=== PATIENT | male | born 1980 | race African-American/Black ===

== ENCOUNTER 2017-02-03 13:37 | Emergency (ER) | payer SELFPAY ==
[~2017-02-03] VITALS: Ht 182.9 cm; Wt 170.7 kg
[2017-02-03] MEDS ORDERED: PERCOCET 5/31 TABLET PO (17:13)
[2017-02-03 17:53] VITALS: BP 90/35
== END 2017-02-03 18:01 | disposition home or self-care (01) ==
LOC: EME 13:37
DX: R60.0 Localized edema (principal); Z87.828 Personal history of other (healed) physical injury and trauma
CPT/HCPCS: 99281; 99282

== ENCOUNTER 2017-02-09 09:09 | Emergency (ER) | payer SELFPAY ==
[~2017-02-09] VITALS: Ht 190.5 cm; Wt 174.9 kg
[~2017-02-09 09:09] MED LIST: PERCOCET 5/31 TABLET PO
[2017-02-09] MEDS ORDERED: MOTRIN800 MG PO (11:05)
[2017-02-09] MEDS ORDERED: KEFLEX500 MG PO (13:10)
[2017-02-09 15:38] LABS: HEMATOCRIT 37.9 % (38.0-50.0); MCH 26.7 PG (29.0-34.0); MCHC 31.4 G/DL (30.0-36.0); MEAN PLAT.VOLUME 10.9 uM^3 (9.0-12.4); PLATELET COUNT 184 K/uL (156-360); RBC DIS.WIDTH-CV 14.9 % (11.8-14.6); RBC DIS.WIDTH-SD 46.2 % (39-53); RED BLOOD COUNT 4.46 M/uL (4.00-5.50); WHITE BLOOD COUNT 6.3 K/uL (4.1-10.2)
[2017-02-09 15:43] LABS: CHLORIDE 107 mEq/L (99-109); POTASSIUM 3.9 mEq/L (3.7-5.4); SODIUM 140 mEq/L (136-147)
[2017-02-09 15:45] LABS: GLUCOSE 82 mg/dL (70-99)
[2017-02-09 15:46] LABS: ANION GAP 6 MEQ/L (2-14)
[2017-02-09 15:47] LABS: TOTAL BILIRUBIN 0.7 mg/dL (0.0-1.0)
[2017-02-09 15:48] LABS: ALKALINE PHOSPHATASE 80 IU/L (3-129)
[2017-02-09 15:49] LABS: GFR ESTIMATE (CALCULATED) > 59 mL/min/
[2017-02-09 15:50] LABS: UREA NITROGEN (BUN) 9 mg/dL (9-23)
[2017-02-09] MEDS ORDERED: MOBIC15 MG PO (18:07)
[2017-02-09 18:52] VITALS: BP 154/89
== END 2017-02-09 18:53 | disposition home or self-care (01) ==
LOC: EME 09:09
PROVIDERS: Nurse Practitioner Family
DX: R60.0 Localized edema (principal); M79.671 Pain in right foot; M79.672 Pain in left foot; Z91.14 Patient's other noncompliance with medication regimen
CPT/HCPCS: 72040; 73706; 80053; 83880; 85027; 93970; 99281; 99284

== ENCOUNTER 2017-03-14 20:11 | Emergency (ER) | payer SELFPAY ==
[~2017-03-14 20:11] MED LIST changes: +KEFLEX500 MG PO; +MOBIC15 MG PO; +MOTRIN800 MG PO
[2017-03-14 20:27] LABS: EOSINOPHIL (%) 1.1 % (0-5); EOSINOPHIL COUNT 0.1 K/uL (0-0.3); HEMATOCRIT 35.1 % (38.0-50.0); IMMATURE GRANULOCYTE (%) 0.3 % (0.0-0.7); INSTRUMENT ABS NEUTROPHIL CT 4.2 K/uL; LYMPHOCYTE COUNT 1.5 K/uL (1.0-2.8); MCH 26.4 PG (29.0-34.0); MCHC 31.3 G/DL (30.0-36.0); MCV 84.2 FL (86-99); MEAN PLAT.VOLUME 11.2 uM^3 (9.0-12.4); MONOCYTE (%) 10.1 % (3-12); MONOCYTE COUNT 0.7 K/uL (0-0.8); NEUTROPHIL (%) 64.7 % (45-76); NEUTROPHIL COUNT 4.2 K/uL (1.8-6.4); PLATELET COUNT 210 K/uL (156-360); RBC DIS.WIDTH-CV 14.6 % (11.8-14.6); RBC DIS.WIDTH-SD 44.7 % (39-53); RED BLOOD COUNT 4.17 M/uL (4.00-5.50); WHITE BLOOD COUNT 6.4 K/uL (4.1-10.2)
[2017-03-14 20:36] LABS: AMYLASE 46 IU/L (1-118); CHLORIDE 112 mEq/L (99-109); POTASSIUM 3.1 mEq/L (3.7-5.4); SODIUM 143 mEq/L (136-147)
[2017-03-14 20:37] LABS: GLUCOSE 124 mg/dL (70-99)
[2017-03-14 20:39] LABS: ANION GAP 9 MEQ/L (2-14)
[2017-03-14 20:40] LABS: SERUM ETHYL ALCOHOL < 10 mg/dL
[2017-03-14 20:41] LABS: GFR ESTIMATE (CALCULATED) > 59 mL/min/
[2017-03-14 20:42] LABS: UREA NITROGEN (BUN) 10 mg/dL (9-23)
[2017-03-14 20:44] LABS: LIPASE 17 U/L (1.0-51.0)
[2017-03-15] MEDS ORDERED: ULTRAM50 MG PO (00:44)
[2017-03-15] MEDS ORDERED: MOTRIN800 MG PO (01:00)
== END 2017-03-15 03:05 | disposition home or self-care (01) ==
LOC: TRA 20:11
PROVIDERS: Emergency Medicine
DX: S51.811A Laceration without foreign body of right forearm, initial encounter (principal); S91.311A Laceration without foreign body, right foot, initial encounter; S01.112A Laceration without foreign body of left eyelid and periocular area, initial encounter; T79.7XXA Traumatic subcutaneous emphysema, initial encounter; Y04.0XXA Assault by unarmed brawl or fight, initial encounter; S02.2XXA Fracture of nasal bones, initial encounter for closed fracture; I95.9 Hypotension, unspecified; R00.0 Tachycardia, unspecified
CPT/HCPCS: 70450; 70486; 71010; 73206; 73630; 80048; 81003; 82150; 83690; 85025; 86900; 86901; 99281; 99285; G0480; J0690; J1885; J3010; J7030; J7050

== ENCOUNTER 2017-03-24 03:14 | Emergency (ER) | payer SELFPAY ==
[~2017-03-24] VITALS: Ht 188 cm; Wt 166.9 kg
[~2017-03-24 03:14] MED LIST changes: +ULTRAM50 MG PO
[2017-03-24 03:16] VITALS: BP 140/78
[2017-03-24] MEDS ORDERED: ULTRAM50 MG PO (20:23)
[2017-03-24] MEDS ORDERED: LOTRISONE LOTIO30 ML TP (20:23)
[2017-03-24] MEDS ORDERED: KEFLEX500 MG PO (20:23)
== END 2017-03-24 04:10 | disposition home or self-care (01) ==
LOC: EME 03:14
DX: S90.821A Blister (nonthermal), right foot, initial encounter (principal); B07.0 Plantar wart
CPT/HCPCS: 99281; 99282

== ENCOUNTER 2017-03-24 19:20 | Emergency (ER) | payer SELFPAY ==
[~2017-03-24] VITALS: Ht 190.5 cm; Wt 168.0 kg
[2017-03-24] MEDS ORDERED: KEFLEX500 MG PO (20:23)
[2017-03-24] MEDS ORDERED: ULTRAM50 MG PO (20:23)
[2017-03-24] MEDS ORDERED: LOTRISONE LOTIO30 ML TP (20:23)
[2017-03-24 20:40] VITALS: BP 132/67
== END 2017-03-24 20:43 | disposition home or self-care (01) ==
LOC: EME 19:20
DX: B35.3 Tinea pedis (principal)
CPT/HCPCS: 99281; 99283

== ENCOUNTER 2017-03-29 10:01 | Emergency (ER) | payer SELFPAY ==
[~2017-03-29] VITALS: Ht 190.5 cm; Wt 167.1 kg
[~2017-03-29 10:01] MED LIST changes: +LOTRISONE LOTIO30 ML TP
[2017-03-29 11:33] VITALS: BP 157/72
== END 2017-03-29 11:33 | disposition home or self-care (01) ==
LOC: EME 10:01
DX: S01.112D Laceration without foreign body of left eyelid and periocular area, subsequent encounter (principal); S51.811D Laceration without foreign body of right forearm, subsequent encounter
CPT/HCPCS: 99281; 99283

== ENCOUNTER 2017-04-07 01:00 | Emergency (ER) | payer SELFPAY ==
[~2017-04-07] VITALS: Ht 190.5 cm; Wt 166.5 kg
[2017-04-07 02:09] VITALS: BP 116/87
== END 2017-04-07 02:09 | disposition home or self-care (01) ==
LOC: EME 01:00
DX: S51.811D Laceration without foreign body of right forearm, subsequent encounter (principal); S91.311D Laceration without foreign body, right foot, subsequent encounter; Z87.891 Personal history of nicotine dependence
CPT/HCPCS: 99281; 99282

== ENCOUNTER 2017-05-13 23:36 | Emergency (ER) | payer SELFPAY ==
[~2017-05-13] VITALS: Ht 190.5 cm; Wt 168.4 kg
[2017-05-14] MEDS ORDERED: MEDROL DOSEPAK4 MG PO (00:43)
[2017-05-14 00:53] VITALS: BP 135/70
== END 2017-05-14 01:09 | disposition home or self-care (01) ==
LOC: EXP 23:36 → EME 23:36 → EXP 05-14 01:09
DX: J02.0 Streptococcal pharyngitis (principal); K12.2 Cellulitis and abscess of mouth; F16.90 Hallucinogen use, unspecified, uncomplicated
CPT/HCPCS: 87651 90; 99281; 99284; J0561; J7512

== ENCOUNTER 2017-12-01 16:13 | Emergency (ER) | payer SELFPAY ==
[~2017-12-01] VITALS: Ht 190.5 cm; Wt 170.5 kg
[~2017-12-01 16:13] MED LIST changes: +MEDROL DOSEPAK4 MG PO
[2017-12-01] MEDS ORDERED: MOTRIN600 MG PO (17:36)
[2017-12-01 18:19] VITALS: BP 146/73
== END 2017-12-01 18:26 | disposition home or self-care (01) ==
LOC: EME 16:13
DX: S93.401A Sprain of unspecified ligament of right ankle, initial encounter (principal); R22.41 Localized swelling, mass and lump, right lower limb; W18.30XA Fall on same level, unspecified, initial encounter; Z86.718 Personal history of other venous thrombosis and embolism
CPT/HCPCS: 73610; 73630; 93971; 99281; 99284

== ENCOUNTER 2018-01-04 13:11 | Emergency (ER) | payer SELFPAY ==
[~2018-01-04] VITALS: Ht 190.5 cm; Wt 173.0 kg
[~2018-01-04 13:11] MED LIST changes: +MOTRIN600 MG PO
[2018-01-04 13:45] LABS: HEMATOCRIT 37.5 % (38.0-50.0); HEMOGLOBIN 12.1 G/DL (12.5-16.6); MCH 26.5 PG (29.0-34.0); MCHC 32.3 G/DL (30.0-36.0); MCV 82.2 FL (86-99); PLATELET COUNT 196 K/uL (156-360); RBC DIS.WIDTH-CV 15.2 % (11.8-14.6); RBC DIS.WIDTH-SD 46.1 % (39-53); RED BLOOD COUNT 4.56 M/uL (4.00-5.50); WHITE BLOOD COUNT 5.2 K/uL (4.1-10.2)
[2018-01-04 13:55] LABS: ALBUMIN 3.4 g/dL (3.2-4.8); CHLORIDE 108 mEq/L (99-109); POTASSIUM 3.6 mEq/L (3.7-5.4); SODIUM 139 mEq/L (136-147)
[2018-01-04 13:57] LABS: GLUCOSE 113 mg/dL (70-99); TOTAL PROTEIN 6.2 g/dL (6.4-8.3)
[2018-01-04 13:59] LABS: TOTAL BILIRUBIN 1.1 mg/dL (0.0-1.0)
[2018-01-04 14:01] LABS: ALKALINE PHOSPHATASE 85 IU/L (3-129); CREATININE 0.8 mg/dL (0.6-1.3); GFR ESTIMATE (CALCULATED) > 59 mL/min/ (58.99-99999)
[2018-01-04 14:02] LABS: UREA NITROGEN (BUN) 9 mg/dL (9-23)
[2018-01-04 14:03] LABS: AST (GOT) 32 IU/L (2-34)
[2018-01-04 14:04] LABS: ALT (GPT) 21 IU/L (3-49)
[2018-01-04 14:09] LABS: APPEARANCE CLEAR ((CLEAR)); BILIRUBIN NEGATIVE; BLOOD NEGATIVE; COLOR YELLOW ((YELLOW)); GLUCOSE (STRIP) NEGATIVE; KETONES NEGATIVE; LEUKOCYTES NEGATIVE; NITRITE NEGATIVE; PROTEIN (STRIP) NEGATIVE; SPECIFIC GRAVITY 1.026 (1.000-1.030); UCUL ADDED? NO
[2018-01-04] MEDS ORDERED: LASIX40 MG PO (15:55)
[2018-01-04] MEDS ORDERED: PEN-VEE K,VEET500 MG PO (16:09)
[2018-01-04 16:28] VITALS: BP 131/65
== END 2018-01-04 16:45 | disposition home or self-care (01) ==
LOC: EME 13:11
DX: R60.0 Localized edema (principal); Z86.718 Personal history of other venous thrombosis and embolism; F17.200 Nicotine dependence, unspecified, uncomplicated
CPT/HCPCS: 71046; 80053; 81003; 85027; 93970; 99281; 99284

== ENCOUNTER 2018-01-18 12:29 | Emergency (ER) | payer SELFPAY ==
[~2018-01-18] VITALS: Ht 190.5 cm; Wt 145.5 kg
[~2018-01-18 12:29] MED LIST changes: +LASIX40 MG PO; +PEN-VEE K,VEET500 MG PO
[2018-01-18 15:31] LABS: HEMATOCRIT 37.3 % (38.0-50.0); HEMOGLOBIN 11.8 G/DL (12.5-16.6); MCH 26.5 PG (29.0-34.0); MCHC 31.6 G/DL (30.0-36.0); MCV 83.6 FL (86-99); PLATELET COUNT 217 K/uL (156-360); RBC DIS.WIDTH-CV 15.5 % (11.8-14.6); RBC DIS.WIDTH-SD 46.6 % (39-53); RED BLOOD COUNT 4.46 M/uL (4.00-5.50); WHITE BLOOD COUNT 7.1 K/uL (4.1-10.2)
[2018-01-18 15:44] LABS: CHLORIDE 111 mEq/L (99-109); POTASSIUM 3.7 mEq/L (3.7-5.4); SODIUM 143 mEq/L (136-147)
[2018-01-18 15:46] LABS: GLUCOSE 103 mg/dL (70-99)
[2018-01-18 15:50] LABS: CREATININE 0.9 mg/dL (0.6-1.3); GFR ESTIMATE (CALCULATED) > 59 mL/min/ (58.99-99999)
[2018-01-18 15:51] LABS: UREA NITROGEN (BUN) 12 mg/dL (9-23)
[2018-01-18] MEDS ORDERED: LASIX40 MG PO (18:12)
[2018-01-18] MEDS ORDERED: NAPROSYN500 MG PO (18:12)
[2018-01-18] MEDS ORDERED: LOTRISONE LOTIO30 ML TP (18:28)
[2018-01-18 18:39] VITALS: BP 134/66
== END 2018-01-18 18:40 | disposition home or self-care (01) ==
LOC: EME 12:29
PROVIDERS: Nurse Practitioner Family
DX: R60.0 Localized edema (principal); R06.02 Shortness of breath; G89.29 Other chronic pain; Z86.718 Personal history of other venous thrombosis and embolism; Z79.01 Long term (current) use of anticoagulants; R63.5 Abnormal weight gain; Z68.41 Body mass index [BMI] 40.0-44.9, adult; F17.200 Nicotine dependence, unspecified, uncomplicated
CPT/HCPCS: 71046; 80048; 83880; 85027; 85379; 93970; 99281; 99284

== ENCOUNTER 2018-02-05 04:31 | Emergency (ER) | payer SELFPAY ==
[~2018-02-05] VITALS: Ht 182.9 cm; Wt 128.2 kg
[~2018-02-05 04:31] MED LIST changes: +NAPROSYN500 MG PO
[2018-02-05 05:34] LABS: BASOPHIL (%) 0.2 % (0-1); EOSINOPHIL (%) 1.8 % (0-5); EOSINOPHIL COUNT 0.1 K/uL (0-0.3); HEMATOCRIT 38.9 % (38.0-50.0); HEMOGLOBIN 12.1 G/DL (12.5-16.6); IMMATURE GRANULOCYTE (%) 0.2 % (0.0-0.7); LYMPHOCYTE (%) 29.7 % (15-42); LYMPHOCYTE COUNT 1.5 K/uL (1.0-2.8); MCH 26.7 PG (29.0-34.0); MCHC 31.1 G/DL (30.0-36.0); MCV 85.9 FL (86-99); MONOCYTE (%) 12.6 % (3-12); MONOCYTE COUNT 0.6 K/uL (0-0.8); NEUTROPHIL (%) 55.5 % (45-76); NEUTROPHIL COUNT 2.7 K/uL (1.8-6.4); PLATELET COUNT 209 K/uL (156-360); RBC DIS.WIDTH-CV 15.8 % (11.8-14.6); RBC DIS.WIDTH-SD 48.8 % (39-53); RED BLOOD COUNT 4.53 M/uL (4.00-5.50); WHITE BLOOD COUNT 4.9 K/uL (4.1-10.2)
[2018-02-05 05:38] LABS: CHLORIDE 109 mEq/L (99-109); SODIUM 141 mEq/L (136-147)
[2018-02-05 05:39] LABS: GLUCOSE 93 mg/dL (70-99)
[2018-02-05 05:43] LABS: CREATININE 0.9 mg/dL (0.6-1.3); GFR ESTIMATE (CALCULATED) > 59 mL/min/ (58.99-99999)
[2018-02-05 05:44] LABS: TROP-I INTERPRETATION NEGATIVE; TROPONIN-I 0.01 ng/mL (0.0-0.30); UREA NITROGEN (BUN) 9 mg/dL (9-23)
[2018-02-05] MEDS ORDERED: LASIX40 MG PO (06:23)
[2018-02-05 06:40] VITALS: BP 140/57
== END 2018-02-05 06:41 | disposition home or self-care (01) ==
LOC: EME 04:31
PROVIDERS: Physician Assistant
DX: R60.0 Localized edema (principal); R06.02 Shortness of breath; T50.1X6A Underdosing of loop [high-ceiling] diuretics, initial encounter; Z91.120 Patient's intentional underdosing of medication regimen due to financial hardship; F17.200 Nicotine dependence, unspecified, uncomplicated; E66.01 Morbid (severe) obesity due to excess calories; Z68.38 Body mass index [BMI] 38.0-38.9, adult
CPT/HCPCS: 71046; 80048; 81003; 83880; 84484; 85025; 99281; 99283